=== PATIENT | female | born 2000 | race Caucasian/White ===

== ENCOUNTER 2019-09-06 23:57 | Emergency (ER) | payer MEDICAID, OTHER ==
[~2019-09-06] VITALS: Ht 182.9 cm; Wt 68.2 kg
[~2019-09-06 23:57] MED LIST: NO HOME MEDS
[2019-09-07] MEDS ORDERED: ibuprofen 200mg tablet PO ONE (01:50)
[2019-09-07] MEDS ORDERED: IBUP-1985 PO (01:52)
[2019-09-07 02:25] VITALS: BP 126/84
== END 2019-09-07 02:15 | disposition home or self-care (01) ==
LOC: ER 23:57
DX: M25.562 Pain in left knee (principal); Z79.899 Other long term (current) drug therapy; W01.0XXA Fall on same level from slipping, tripping and stumbling without subsequent striking against object, initial encounter; Y93.89 Activity, other specified; Y92.89 Other specified places as the place of occurrence of the external cause; Y99.8 Other external cause status
CPT/HCPCS: 73564; 99284

== ENCOUNTER 2020-01-27 22:20 | Emergency (ER) | payer MEDICAID ==
[~2020-01-27] VITALS: Ht 182.9 cm; Wt 61.3 kg
[~2020-01-27 22:20] MED LIST changes: +IBUP-1985 PO
[2020-01-27] MEDS ORDERED: cyclobenzaprine 10mg tablet PO ONE (22:45)
[2020-01-27] MEDS ORDERED: LIDO1ADH TOP (22:51)
[2020-01-27] MEDS ORDERED: CYCL-1 PO (22:51)
[2020-01-27 23:00] VITALS: BP 103/68
== END 2020-01-27 23:02 | disposition home or self-care (01) ==
LOC: ER 22:20
DX: M62.838 Other muscle spasm (principal); Z79.899 Other long term (current) drug therapy
CPT/HCPCS: 73030; 99283

== ENCOUNTER 2020-10-26 03:46 | Emergency (ER) | payer MEDICAID ==
[~2020-10-26] VITALS: Ht 182.9 cm; Wt 66.4 kg
[~2020-10-26 03:46] MED LIST changes: +CYCL-1 PO; +LIDO1ADH TOP
[2020-10-26 04:00] VITALS: BP 132/95
--- NOTE | 2020-10-26 04:05 | NUR ---
RIGHT SHOULDER PAIN X 2 MO. HER SHOULDER IS HAVING DIFFICULTY STAYING IN PLACE/POPPING AND SNAPPING AND LATELY A REAL INCREASE IN PAIN AND SO IT IS REALLY BOTHERING HER TO THE POINT SHE IS SEEKING MD ASSISTANCE. HAS A PCP APPT November BUT TONIGHT IT IS JUST SO PAINFUL.
[2020-11-02] MEDS ORDERED: HYDR-3965 PO (03:45)
== END 2020-10-26 04:24 | disposition home or self-care (01) ==
LOC: ER 03:47
DX: M24.411 Recurrent dislocation, right shoulder (principal); M25.211 Flail joint, right shoulder; Z79.899 Other long term (current) drug therapy
CPT/HCPCS: 29105; 99283

== ENCOUNTER → 2020-11-02 | Emergency (ER) | payer MEDICAID ==
[~2020-11-02] VITALS: Ht 182.9 cm; Wt 63.6 kg
[~2020-11-02] MED LIST changes: +HYDR-3965 PO; +HYDROcodone/acetaminophen 5mg/325mg tablet PO ONE; +ondansetron 4mg rapidly disintigrating tab PO ONE
[2020-11-02 03:07] VITALS: BP 126/87
== END | disposition home or self-care (01) ==
LOC: ER 02:45
DX: M25.511 Pain in right shoulder (principal); X50.0XXA Overexertion from strenuous movement or load, initial encounter; Y93.89 Activity, other specified; Y92.89 Other specified places as the place of occurrence of the external cause; Y99.8 Other external cause status
CPT/HCPCS: 73030; 99283

== ENCOUNTER 2021-06-08 06:26 | Emergency (ER) | payer MEDICAID ==
[~2021-06-08] VITALS: Ht 182.9 cm; Wt 72.7 kg
[~2021-06-08 06:26] MED LIST changes: -HYDR-3965 PO; -HYDROcodone/acetaminophen 5mg/325mg tablet PO ONE; -ondansetron 4mg rapidly disintigrating tab PO ONE
[2021-06-08 06:29] VITALS: BP 147/95
[2021-06-08] MEDS ORDERED: ketorolac trometh. 30mg/ml inj. IM ONE (06:45)
[2021-06-08] MEDS ORDERED: ondansetron 4mg rapidly disintigrating tab PO ONE (06:45)
[2021-06-08] MEDS ORDERED: ONDA4TAB12 PO (06:46)
== END 2021-06-08 07:02 | disposition home or self-care (01) ==
LOC: ER 06:27
DX: G89.29 Other chronic pain (principal); M25.511 Pain in right shoulder; J45.909 Unspecified asthma, uncomplicated; F12.10 Cannabis abuse, uncomplicated
CPT/HCPCS: 96372; 99283; J1885

== ENCOUNTER 2022-04-08 15:59 | Emergency (ER) | payer MEDICAID ==
[~2022-04-08] VITALS: Ht 182.9 cm; Wt 65.0 kg
[~2022-04-08 15:59] MED LIST changes: -NO HOME MEDS; +ONDA4TAB12 PO
[2022-04-08] MEDS: ketorolac trometh. 30mg/ml inj. IM ONE (17:01)
[2022-04-08 20:18] VITALS: BP 112/85
== END 2022-04-08 20:58 | disposition home or self-care (01) ==
LOC: ER 16:01
DX: M25.511 Pain in right shoulder (principal); J45.909 Unspecified asthma, uncomplicated; G89.29 Other chronic pain; F12.90 Cannabis use, unspecified, uncomplicated; Z88.6 Allergy status to analgesic agent
CPT/HCPCS: 96372; 99285; J1885